=== PATIENT | female | born 1960 | race Caucasian/White ===

== ENCOUNTER 2019-12-09 21:35 | Emergency (ER) | payer OTHER ==
[2019-12-09 21:40] VITALS: BP 166/82; PULSE 86; TEMP 98.2; BMI 24.5
--- NOTE | 2019-12-10 04:50 | PDOC ---
Documentation entered by Veronica Brantley SCRIBE, acting as scribe for Jenni Low MD. Jenni Low MD: This documentation has been prepared by the Karon knight Brenda, SCRIBE, under my direction and personally reviewed by me in its entirety. I confirm that the documentation accurately reflects all work, treatment, procedures, and medical decision making performed by me. History of Present Illness - General Chief Complaint: Toothache Stated Complaint: RT JAW SWELLING Time Seen by Provider: 12/09/19 21:38 History Source: Patient Exam Limitations: No Limitations - History of Present Illness Initial Comments: 12/09/19 22:33 The patient is a 59 year old female, with a significant PMH of breast cancer (s/ p lumpectomy, chemo and radiation) and trigeminal neuralgia who presents to the emergency department with 2 hours of feeling right-sided facial swelling. Patient states she felt as if it was being inflated. Patient denies pain, itchiness or any prior symptoms. Patient states that does not feel like her trigeminal neuralgia. The patient denies chest pain, shortness of breath, headache and dizziness. Denies fever, chills, nausea, vomiting, diarrhea and constipation. Denies dysuria, frequency, urgency and hematuria. Allergies: NKA Past surgical history: Lumpectomy Social history: No reported hx of tobacco use, alcohol use or illicit drug use. Past History - Past Medical History Allergies/Adverse Reactions: Allergies Allergy/AdvReac Type Severity Reaction Status Date / Time No Known Drug Allergies Allergy Verified 06/24/13 06:54 Home Medications: Ambulatory Orders Tamoxifen Citrate 20 mg PO DAILY 12/09/19 Anemia: No Asthma: No Cancer: Yes (RIGHT BREAST DIAGNOSED 05/2013) Cardiac Disorders: No CVA: No COPD: No CHF: No Dementia: No Diabetes: No GI Disorders: Yes (GERD/DUODENAL ULCER X 8 YRS AGO WITH H-PYLORI) Disorders: No HTN: No Hypercholesterolemia: No Liver Disease: No Seizures: No Thyroid Disease: No - Surgical History Abdominal Surgery: No Appendectomy: Yes (1964) Cardiac Surgery: No Cholecystectomy: No Lung Surgery: No Neurologic Surgery: No Orthopedic Surgery: No - Psycho Social/Smoking Cessation Hx Smoking History: Never smoked Have you smoked in the past 12 months: No If you are a former smoker, when did you quit?: 1977 Hx Alcohol Use: Yes (RARE) Drug/Substance Use Hx: Yes Substance Use Type: Alcohol Hx Substance Use Treatment: No Review of Systems - Review of Systems Able to Perform ROS?: Yes Comments:: 12/09/19 22:34 GENERAL/CONSTITUTIONAL: No fever or chills. No weakness. HEAD, EYES, EARS, NOSE AND THROAT:(+) Swollen right side of face. No change in vision. No ear pain or discharge. No sore throat. CARDIOVASCULAR: No chest pain or shortness of breath. RESPIRATORY: No cough, wheezing, or hemoptysis. GASTROINTESTINAL: No nausea, vomiting, diarrhea or constipation. GENITOURINARY: No dysuria, frequency, or change in urination. MUSCULOSKELETAL: No joint or muscle swelling or pain. No neck or back pain. SKIN: No rash NEUROLOGIC: No headache, vertigo, loss of consciousness, or change in strength/ sensation. ENDOCRINE: No increased thirst. No abnormal weight change. HEMATOLOGIC/LYMPHATIC: No anemia, easy bleeding, or history of blood clots. ALLERGIC/IMMUNOLOGIC: No hives or skin allergy. *Physical Exam - Vital Signs Last Vital Signs Temp Pulse Resp BP Pulse Ox 98.2 F 86 16 166/82 100 12/09/19 21:37 12/09/19 21:37 12/09/19 21:37 12/09/19 21:37 12/09/19 21:37 - Physical Exam 12/09/19 22:34 GENERAL:No increased warmth Awake, alert, and fully oriented, in no acute distress HEAD: No signs of trauma EYES: PERRLA, EOMI, sclera anicteric, conjunctiva clear ENT: Auricles normal inspection, hearing grossly normal, nares patent, oropharynx clear without exudates. Moist mucosa NECK: Normal ROM, supple, no lymphadenopathy, JVD, or masses LUNGS: Breath sounds equal, clear to auscultation bilaterally. No wheezes, and no crackles HEART: Regular rate and rhythm, normal S1 and S2, no murmurs, rubs or gallops ABDOMEN: Soft, nontender, normoactive bowel sounds. No guarding, no rebound. No masses EXTREMITIES: Normal range of motion, no edema. No clubbing or cyanosis. No cords, erythema, or tenderness NEUROLOGICAL: Cranial nerves II through XII grossly intact. Normal speech, normal gait SKIN: (+) Mild edema of right preauricular region with mild tenderness of parotid gland. Warm, Dry, normal turgor, no rashes or lesions noted. Medical Decision Making - Medical Decision Making As noted above, 59-year-old woman with a history of breast cancer, currently taking tamoxifen presents with rapid development of swelling and minimal pain in the area in front of her right ear. This swelling occurred just prior to presentation while patient was watching television and eating popcorn. No previous history of swelling in this area. No previous history of salivary gland stones, inflammation or infection. No history of recent fever or known exposure to patient with mumps. No travel recently. Exam as noted with mild tenderness but no fluctuance/erythema/increased warmth in the right preauricular area. Etiology of the rapid swelling is not totally clear but since it occurred while she was eating, it is possible that blockage of the parotid gland duct on the right side (either by mucus or stone) may have caused the edema. Since patient has no evidence of infection either in her ear/mouth or directly in the area of of the parotid gland, no antibiotics will be empirically started at this time. Patient will treat area symptomatically with warm compresses/analgesics as necessary. Also, flow of saliva should be stimulated using sour foods such as sour candies. She should return to ER if she has increased pain/warmth/redness/ edema of the area or if she develops fever She should follow-up with her doctor within the next 3 to 4 days. Discharge - Discharge Information Problems reviewed: Yes Clinical Impression/Diagnosis: Parotid gland fullness Condition: Stable Disposition: HOME - Follow up/Referral - Patient Discharge Instructions Patient Printed Discharge Instructions: DI for Parotitis-Adult Additional Instructions: Local warmth to area of swelling Acetaminophen or ibuprofen as needed for pain Can suck on sour sugarless candy as needed to increase saliva flow Return to ER or see your doctor if you have increased pain, redness, swelling in the area or if you develop fever In any case, follow-up with your doctor within the next 3 to 4 days - Post Discharge Activity
== END 2019-12-09 22:54 | disposition home or self-care (01) ==
LOC: FER 21:35
DX: K11.20 Sialoadenitis, unspecified (principal); Z85.3 Personal history of malignant neoplasm of breast; Z87.891 Personal history of nicotine dependence
CPT/HCPCS: 99282-25